=== PATIENT | female | born 2000 | race Caucasian/White ===

== ENCOUNTER 2022-04-12 11:12 | Emergency (ER) | payer OTHER ==
[~2022-04-12] VITALS: Ht 157.5 cm; Wt 67.6 kg
[2022-04-12 11:51] VITALS: BP 117/67
--- NOTE | 2022-04-12 12:27 | NUR ---
COVID AND INFLUENZA SAMPLES SENT TO LAB
[2022-04-12] MEDS ORDERED: BPM/118L5 PO (12:59)
[2022-04-12] MEDS ORDERED: IBUP-1842 PO (12:59)
[2022-04-12] MEDS ORDERED: CHLSPR MM (12:59)
[2022-04-12 13:24] VITALS: BP 123/67
--- NOTE | 2022-04-12 13:25 | NUR ---
Patient discharged with v/s stable. Written and verbal after care instructions given and explained. Patient verbalized understanding. Ambulatory with steady gait. All questions addressed prior to discharge. Advised to follow up with PMD.
== END 2022-04-12 13:25 | disposition home or self-care (01) ==
LOC: MED 11:12
DX: J02.8 Acute pharyngitis due to other specified organisms (principal); Z20.822 Contact with and (suspected) exposure to COVID-19; H92.02 Otalgia, left ear
CPT/HCPCS: 99283